=== PATIENT | female | born 1985 | race Two or more races ===

== ENCOUNTER 2018-11-29 20:04 | Emergency (ER) | payer SELFPAY ==
[~2018-11-29] VITALS: Ht 162.6 cm; Wt 59.0 kg
[2018-11-29 20:12] VITALS: BP 148/88
== END 2018-11-30 | disposition left against medical advice (07) ==
LOC: ER 20:04
DX: Z53.21 Procedure and treatment not carried out due to patient leaving prior to being seen by health care provider (principal)